=== PATIENT | male | born 1950 | race African-American/Black ===

== ENCOUNTER → 2018-10-08 | Outpatient (CLI) | payer MEDICARE, OTHER ==
[2015-08-11 12:30] VITALS: BP 108/56
[~2018-10-08] MED LIST: ACET325T9 PO; AMLO5TAB10 PO; ASPI325T8 PO; BISA5TAB4 PO; CA C1TAB28 PO; CYCL5TAB PO; FENO160T PO; FERR325T14 PO; FLUT16SP2 NS; HYDR-2145 PO; HYDR-2761 PO; INSU100V8 SQ; LISI10TA2 PO; LORA10TA3 PO; LOXA10CA PO; MOME45CR2 TP; OMEP40CA5 PO; PIOG45TA62 PO; POLY2500 PO; POTA20PI2 IV; SENN-161 PO; TAMS0.4C2 PO; TRAM50TA PO; TRAV5DRO OP; ZOLP5TAB5 PO
[2018-10-08 11:50] LABS: BASO # 0.1 x10^3/uL (0.0-0.2); BASO % 1 % (0-3); EOS # 0.1 x10^3/uL (0.0-0.7); EOS % 2 % (0-3); HEMATOCRIT 48.6 % (39.0-53.0); HEMOGLOBIN 15.6 g/dL (13.0-17.5); LYMPH # 1.4 x10^3/uL (1.0-4.8); LYMPH % 20 % (24-48); MEAN CORPUSCULAR HEMOGLOBIN 26 pg (25-35); MEAN CORPUSCULAR HGB CONC 32 g/dL (31-37); MEAN CORPUSCULAR VOLUME 82 fL (79-100); MONO # 0.6 x10^3/uL (0.0-1.1); MONO % 9 % (0-9); NEUT # 4.8 x10^3uL (1.8-7.7); NEUT % 69 % (31-73); PLATELET COUNT 175 x10^3/uL (140-400); RED BLOOD COUNT 5.95 x10^6/uL (4.30-5.70); RED CELL DISTRIBUTION WIDTH 14.7 % (11.5-14.5)
--- NOTE | 2018-10-08 12:24 | RAD ---
EXAM: Left knee, 3 views. HISTORY: Pain and swelling. COMPARISON: None. FINDINGS: 3 views left knee are obtained. There is mild tricompartmental spurring. There is medial and lateral compartment chondrocalcinosis. There is no fracture, dislocation or subacute fixation. There is a trace joint effusion. IMPRESSION: 1. Mild tricompartmental arthritis of the left knee with chondrocalcinosis and suspected trace joint effusion. 2. No acute osseous finding. Electronically signed by: Vijaya Pittman MD (10/08/2018 12:21 PM) [facility]
[2018-10-08 12:42] LABS: ALBUMIN 3.9 g/dL (3.4-5.0); ALBUMIN/GLOBULIN RATIO 0.9 (1.0-1.7); CALCIUM 9.6 mg/dL (8.5-10.1); CHOLESTEROL/HDL RATIO 2.1; CREATININE 2.3 mg/dL (0.7-1.3); GFR 34.6; POTASSIUM 3.2 mmol/L (3.5-5.1); TOTAL BILIRUBIN 0.2 mg/dL (0.2-1.0); TOTAL PROTEIN 8.3 g/dL (6.4-8.2)
[2018-10-09 00:10] LABS: HEMOGLOBIN A1C 5.8 % (4.8-5.6)
== END | disposition home or self-care (01) ==
LOC: LAB 11:13
PROVIDERS: ATTEND Internal Medicine
DX: M17.12 Unilateral primary osteoarthritis, left knee (principal); M11.262 Other chondrocalcinosis, left knee; E11.29 Type 2 diabetes mellitus with other diabetic kidney complication
CPT/HCPCS: 36415; 73562; 80053; 80061; 83036; 85025

== ENCOUNTER → 2020-02-20 | Outpatient (CLI) | payer MEDICARE, MEDICAID ==
[2015-08-11 12:30] VITALS: BP 108/56
[~2020-02-20] MED LIST changes: -MOME45CR2 TP; +MOME45CR3 TP; +OMEP40CA45 PO; -OMEP40CA5 PO; +REGADENOSON 0.4 MG/5 ML DISP.SYRIN. IV ONE
--- NOTE | 2020-02-20 15:51 | CARD ---
MR#: [id number] Date of Study: 02/20/2020 Ordering Physician: HUONG VALIENTE, Referring Physician: HUONG VALIENTE, Tech: Belem Hernandez APPROVED REPORT EXAM: Two-dimensional and M-mode echocardiogram with Doppler and color Doppler. Other Information Quality : GoodHR: 72bpm Technically limited study due to body habitus. INDICATION Abnormal EKG RISK FACTORS Hypertension Diabetes Smoking 2D DIMENSIONS RVDd2.5 (2.9-3.5cm)Left Atrium(2D)3.6 (1.6-4.0cm) IVSd1.1 (0.7-1.1cm)Aortic Root(2D)3.1 (2.0-3.7cm) LVDd5.5 (3.9-5.9cm)LVOT Diameter1.9 (1.8-2.4cm) PWd1.1 (0.7-1.1cm)LVDs4.9 (2.5-4.0cm) FS (%) 9.8 %SV31.2 ml LVEF(%)21.3 (>50%) Aortic Valve AoV Peak Willian.161.5cm/sAoV VTI33.6cm AO Peak GR.10.4mmHgLVOT Peak Willian.128.0cm/s AO Mean GR.6mmHgAVA (VMAX)2.21cm2 Mitral Valve MV E Jfqfocce50.3cm/sMV E Peak Gr.5mmHg MV DECEL [id number] A Dcxwovcb649.5cm/s MV E Mean Gr.2mmHgE/A Ratio0.6 Pulmonary Valve PV Peak Dxuajovz40.6cm/s Tricuspid Valve TR P. Salrests757iu/sRAP CXWQNLRW7dyUd TR Peak Gr.43gqJjZALX78ccHp Pulmonary Vein S1 Lfjdymle54.0cm/sD2 Ludhfemm50.7cm/s PVa cmarynsl135grcl LEFT VENTRICLE The left ventricle is normal size. There is mild concentric left ventricular hypertrophy. The systoli c function is moderately impaired. The Ejection Fraction is 35%. There is global hypokinesis of the l eft ventricle. Transmitral Doppler flow pattern is Grade I-abnormal relaxation pattern. RIGHT VENTRICLE The right ventricle is normal size. There is normal right ventricular wall thickness. The right ventr icular systolic function is normal. ATRIA The left atrium size is normal. The right atrium size is normal. The interatrial septum is intact wit h no evidence for an atrial septal defect or patent foramen ovale as noted on 2-D or Doppler imaging. AORTIC VALVE The aortic valve is not well visualized. Doppler and Color Flow revealed trace aortic regurgitation. Calculated aortic valve area is 2.2 cm2 with maximum pressure gradient of 11 mmHg and mean pressure g radient of 7 mmHg. MITRAL VALVE The mitral valve is normal in structure and function. There is no evidence of mitral valve prolapse. There is no mitral valve stenosis with a mean gradient of 2.17 mmHg. Doppler and Color-flow revealed trace mitral regurgitation. TRICUSPID VALVE The tricuspid valve is normal in structure and function. Doppler and Color Flow revealed trace tricus pid regurgitation with an estimated PAP of 29 mmHg. There is no tricuspid valve stenosis. PULMONIC VALVE The pulmonic valve is not well visualized. Doppler and Color Flow revealed no pulmonic valvular regur gitation. There is no pulmonic valvular stenosis. GREAT VESSELS The aortic root is normal in size. The IVC is normal in size and collapses >50% with inspiration. PERICARDIAL EFFUSION There is no evidence of significant pericardial effusion. Critical Notification Critical Value: No <Conclusion> The systolic function is moderately impaired. The Ejection Fraction is 35%. There is global hypokinesis of the left ventricle. Signed by : Yaakov Charles, Electronically Approved : 02/20/2020 15:50:58
--- NOTE | 2020-02-20 16:02 | RAD ---
MR#: [id number] Date of Study: 02/20/2020 Ordering Physician: HUONG VALIENTE, Referring Physician: LUÍS SANTILLAN Tech: CARMELA Stockton APPROVED REPORT Test Type: Pharmacological Stress Nurse/Tech: Aylin Oden R.N. Test Indications: abn. EKG Cardiac History: Hypertension, Diabetes Medications: See Electronic Medical Record Medical History: See Electronic Medical Record Resting ECG: NSR with PAC,s and PVC,s Resting Heart Rate: 71 bpm Resting Blood Pressure: 137/77mmHg Pretest Chest Pain: No chest pain Nurse/Tech Notes S1S2, lungs sound clear Consent: The procedure was explained to the patient in lay terms. Informed consent was witnessed. Maco eout was entered into [employer]. History and Stress Test performed by Aylin Oden R.N. Pharm. Details Pharmacologic stress testing was performed using 0.4mg per 5ml of regadenoson given intravenously ove r 7-10 seconds. Stress Symptoms No chest pain or symptoms. POST EXERCISE Reason for Termination: Infusion complete Target HR: 130 Max HR: 109 bpm Max Blood Pressure: 137/77mmHg Blood Pressure response to exercise: Normal blood pressure response during stress. Chest Pain: No. Arrhythmia: No. no change from pre test ST Change: No. INTERPRETATION Stress EKG Conclusion: No evidence of stress induced EKG changes Imaging Protocol IMAGE PROTOCOL: Rest Tc-99m/stress Tc-99m 1 day Rest: Stress: Viability: Radiopharm.Tc99m StngmrcquDv97f Sestamibi Boxd02pRh 33mCi Duration 15min. 13min. Img Date 02/20/2020 02/20/2020 Inj-Img Fkwt33adl. 60min. Rest Admin Site:IV - Right HandAdministrator:RT Alea (R)(N) Stress Admin Site: IV - Right HandAdministrator: RT Alea (R)(N) STRESS DATA End Diast. Vol.135.0mlLVEDV index BSA70.0ml End Syst. Vol.68.0mlLVESV index BSA35.0ml Myocardial Jpcf316.0gEject. Eqwokrzk66.0% Stress Scores Regional WT1.00Summed WT20.00 Regional WM0.00Summed WM19.00 LV Perfusion There is a fixed basal to mid perfusion defect suggestive of prior infarct without active ischemia. Wall Motion Mild LV dysfunction. EF 50% LV Perf. Quant 17 Seg. SSS2.00 17 Seg. SRS7.00 17 Seg. SDS1.00 Stress Defect Extent (% LAD)0.00Rest Defect Extent (% LAD)2.50Rev. Defect Extent (% LAD)0.00 Stress Defect Extent (% LCX) 0.00Rest Defect Extent (% LCX)11.30Rev. Defect Extent (% LCX)0.00 Stress Defect Extent (% RCA)6.70Rest Defect Extent (% RCA)13.30Rev. Defect Extent (% RCA)0.00 Stress Defect Extent (% RANJAAN)1.30Rest Defect Extent (% RANJANA)6.30Rev. Defect Extent (% RANJANA)0.00 Other Information Quality:Average Risk Assessment: Moderate Risk Conclusion 1. No evidence of stress induced EKG changes. 2. Fixed basal to mid inferior wall perfusion defect suggestive of prior infarct. 3. Mild global hypokinesis EF = 50% 4. Moderate risk study Signed by : Yaakov Charles, Electronically Approved : 02/20/2020 16:02:05
== END | disposition home or self-care (01) ==
LOC: NM 12:24
PROVIDERS: ATTEND Internal Medicine Cardiovascular Disease
DX: I51.7 Cardiomegaly (principal); R94.31 Abnormal electrocardiogram [ECG] [EKG]; I10 Essential (primary) hypertension; E11.9 Type 2 diabetes mellitus without complications
CPT/HCPCS: 78452; 93017; 93306; A9500; J2785

== ENCOUNTER → 2021-03-01 | Outpatient (CLI) | payer MEDICARE, MEDICAID ==
[2015-08-11 12:30] VITALS: BP 108/56
[~2021-03-01] MED LIST changes: +AMLO-186 PO; -AMLO5TAB10 PO; +LISI10TA16 PO; -LISI10TA2 PO; -OMEP40CA45 PO; +OMEP40CA7 PO; -REGADENOSON 0.4 MG/5 ML DISP.SYRIN. IV ONE
--- NOTE | 2021-03-01 15:57 | RAD ---
CT of the chest without contrast 03/01/2021 Indication: [Hemoptysis. Cough comparison study: Chest radiograph August 11, 2015 Technique: Multidetector CT imaging of the chest was performed without contrast Findings: Heart is mildly enlarged. No pericardial effusion is identified. Limited noncontrast enhanc ed evaluation the mediastinum demonstrates no overt pathologically enlarged adenopathy. Multifocal ca lcified mediastinal lymphadenopathy is seen which most commonly reflects prior granulomatous disease. The ascending thoracic aorta is ectatic measuring 3.9 cm. There is no pneumothorax, pleural effusion, or acute appearing infiltrate. Scattered calcified pulmon darryl granulomata are noted. Limited visualization of the upper abdomen demonstrates no acute abnormali ty. No acute osseous changes are appreciated. IMPRESSION: 1. No evidence of acute cardiopulmonary process is identified 2. Mild cardiomegaly CT DOSING PQRS STATEMENT: One or more of the following individualized dose reduction techniques were utilized for this examinat ion: 1. Automated exposure control 2. Adjustment of the mA and/or kV according to patient size 3. Use of iterative reconstruction technique Electronically signed by: Dylan Reeves MD (03/01/2021 3:55 PM) [id number]
== END ==
LOC: CT 11:23
PROVIDERS: ATTEND Internal Medicine
DX: I51.7 Cardiomegaly (principal); R04.2 Hemoptysis; R59.0 Localized enlarged lymph nodes; I77.810 Thoracic aortic ectasia
CPT/HCPCS: 71250

== ENCOUNTER 2021-12-09 16:47 | Emergency (ER) | payer MEDICARE, MEDICAID ==
[~2021-12-09] VITALS: Ht 172.7 cm; Wt 90.0 kg
[2021-12-09 17:45] LABS: BASO # 0.1 x10^3/uL (0.0-0.2); BASO % 1 % (0-3); EOS # 0.1 x10^3/uL (0.0-0.7); EOS % 2 % (0-3); HEMATOCRIT 38.2 % (39.0-53.0); HEMOGLOBIN 12.6 g/dL (13.0-17.5); LYMPH # 1.2 x10^3/uL (1.0-4.8); LYMPH % 18 % (24-48); MEAN CORPUSCULAR HEMOGLOBIN 27 pg (25-35); MEAN CORPUSCULAR HGB CONC 33 g/dL (31-37); MEAN CORPUSCULAR VOLUME 81 fL (79-100); MONO # 0.7 x10^3/uL (0.0-1.1); MONO % 11 % (0-9); NEUT # 4.3 x10^3/uL (1.8-7.7); NEUT % 67 % (31-73); PLATELET COUNT 215 x10^3/uL (140-400); RED BLOOD COUNT 4.73 x10^6/uL (4.30-5.70); RED CELL DISTRIBUTION WIDTH 14.5 % (11.5-14.5); WHITE BLOOD COUNT 6.3 x10^3/uL (4.0-11.0)
[2021-12-09] MEDS ORDERED: IV RINGERS,LACTATED 1000ML 1,000 ML IV ONE (17:45)
[2021-12-09 17:55] LABS: CALCIUM 9.5 mg/dL (8.5-10.1); CREATININE 2.5 mg/dL (0.7-1.3); GFR 31.1; POTASSIUM 3.6 mmol/L (3.5-5.1)
[2021-12-09 18:01] LABS: ALBUMIN 3.3 g/dL (3.4-5.0); ALBUMIN/GLOBULIN RATIO 0.9 (1.0-1.7); MAGNESIUM 1.7 mg/dL (1.8-2.4); TOTAL BILIRUBIN 0.4 mg/dL (0.2-1.0); TOTAL PROTEIN 6.9 g/dL (6.4-8.2)
--- NOTE | 2021-12-09 18:28 | RAD ---
CT HEAD/BRAIN WO History: Reason: AMS / Spl. Instructions: / History: Comparison: August 11, 2015 Technique: Noncontrast CT imaging was performed of the head. Exposure: One or more of the following individualized dose reduction techniques were utilized for thi s examination: 1. Automated exposure control 2. Adjustment of the mA and/or kV according to patient size 3. Use of iterative reconstruction technique. Findings: No intracranial hemorrhage. No mass effect. No hydrocephalus. Mild brain parenchymal volume loss. Mild foci of decreased attenuation within hemispheric white matte r, most often due to chronic microvascular ischemia. Intracranial atheromatous calcifications. Partially empty sella, often incidental. Hemorrhage in the posterior aspect of the right globe with slight V shaped morphology. Imaged paranas al sinuses and mastoid air cells are clear. No acute calvarial fracture. Impression: 1. Right posterior globe hemorrhage, may represent retinal detachment. Electronically signed by: Ant Downing DO (12/09/2021 6:26 PM) [facility] [place]
--- NOTE | 2021-12-09 18:30 | RAD ---
XR CHEST 1V History: Reason: AMS / Spl. Instructions: / History: Comparison: August 11, 2015 Findings: No consolidation or pleural effusion. Normal heart size. No pneumothorax. Calcified pulmonary nodules , likely prior granulomatous disease. Impression: 1. No acute cardiopulmonary process. Electronically signed by: Ant Downing DO (12/09/2021 6:28 PM) [facility] [place]
--- NOTE | 2021-12-09 19:53 | PHYS DOC ---
Past Medical History Past Medical History: Diabetes-Type II, High Cholesterol, Hypertension, Renal Disease Additional Past Medical Histor: ID, right retinal detachment Additional Past Surgical Histo: R retinal detachment procedure Smoking Status: Never Smoker Alcohol Use: None Drug Use: None General Adult EDM: Chief Complaint: OTHER COMPLAINTS HPI: HPI: Patient is a 71 year old male with past medical history that includes intellectual disability who presents via EMS from a snf with complaint of altered mental status. Per EMS, snf health nurse reported patient was "not himself today." Home health nurse also reported some weakness to EMS. Patient states that he sustained a fall yesterday but does not have significant pain. He is unable to provide further history at this time. Review of Systems: Review of Systems: Unable to obtain secondary to patient's baseline mental status. Heart Score: C/O Chest Pain: No Current Medications: Current Medications Medications (Trade) Dose Ordered Sig/Michael Start Time Stop Time Status Last Admin Dose Admin Ringer's Solution 1,000 ml @ 1,000 mls/hr 1X ONCE 12/09/21 17:45 12/09/21 18:44 DC 12/09/21 17:45 1,000 MLS/HR Allergies: Allergies: Allergies Coded Allergies Type Severity Reaction Last Updated Verified No Known Drug Allergies 04/13/14 No Physical Exam: PE: Constitutional: Well developed, well nourished, no acute distress, non-toxic appearance. HENT: Normocephalic, atraumatic, bilateral external ears normal, oropharynx moist, no oral exudates, nose normal. Eyes: PERRL on left, nonreactive pupil on right, EOMI, conjunctiva normal, no discharge. Neck: Normal range of motion, no step-off, no midline/bony tenderness. Cardiovascular: Heart regular rate and rhythm. No apparent murmurs, rubs or gallops. Lungs & Thorax: Equal thoracic expansion, no increased work of breathing. Abdomen: Soft, no tenderness, no masses, no pulsatile masses. Skin: Warm, dry, no erythema. Back: No no step-off, no midline/bony tenderness. Extremities: No tenderness, no cyanosis, no clubbing, ROM intact, no edema. Neurologic: Normal motor function, normal sensory function, no focal deficits noted. Current Patient Data: Labs: Laboratory Tests Test 12/09/21 17:00 12/09/21 17:50 White Blood Count 6.3 x10^3/uL (4.0-11.0) Red Blood Count 4.73 x10^6/uL (4.30-5.70) Hemoglobin 12.6 g/dL (13.0-17.5) L Hematocrit 38.2 % (39.0-53.0) L Mean Corpuscular Volume 81 fL (79-100) Mean Corpuscular Hemoglobin 27 pg (25-35) Mean Corpuscular Hemoglobin Concent 33 g/dL (31-37) Red Cell Distribution Width 14.5 % (11.5-14.5) Platelet Count 215 x10^3/uL (140-400) Neutrophils (%) (Auto) 67 % (31-73) Lymphocytes (%) (Auto) 18 % (24-48) L Monocytes (%) (Auto) 11 % (0-9) H Eosinophils (%) (Auto) 2 % (0-3) Basophils (%) (Auto) 1 % (0-3) Neutrophils # (Auto) 4.3 x10^3/uL (1.8-7.7) Lymphocytes # (Auto) 1.2 x10^3/uL (1.0-4.8) Monocytes # (Auto) 0.7 x10^3/uL (0.0-1.1) Eosinophils # (Auto) 0.1 x10^3/uL (0.0-0.7) Basophils # (Auto) 0.1 x10^3/uL (0.0-0.2) Sodium Level 137 mmol/L (136-145) Potassium Level 3.6 mmol/L (3.5-5.1) Chloride Level 97 mmol/L (98-107) L Carbon Dioxide Level 27 mmol/L (21-32) Anion Gap 13 (6-14) Blood Urea Nitrogen 32 mg/dL (8-26) H Creatinine 2.5 mg/dL (0.7-1.3) H Estimated GFR (Cockcroft-Gault) 31.1 BUN/Creatinine Ratio 13 (6-20) Glucose Level 102 mg/dL (70-99) H Calcium Level 9.5 mg/dL (8.5-10.1) Magnesium Level 1.7 mg/dL (1.8-2.4) L Total Bilirubin 0.4 mg/dL (0.2-1.0) Aspartate Amino Transferase (AST) 20 U/L (15-37) Alanine Aminotransferase (ALT) 18 U/L (16-63) Alkaline Phosphatase 43 U/L (46-116) L Troponin I High Sensitivity 14 ng/L (4-75) Total Protein 6.9 g/dL (6.4-8.2) Albumin 3.3 g/dL (3.4-5.0) L Albumin/Globulin Ratio 0.9 (1.0-1.7) L Ammonia 10 mcmol/L (11-34) L Laboratory Tests 12/09/21 17:00 Laboratory Tests 12/09/21 17:00 Vital Signs: Vital Signs Date Time Temp Pulse Resp B/P (MAP) Pulse Ox O2 Delivery O2 Flow Rate FiO2 12/09/21 21:30 78 18 136/68 (90) 100 12/09/21 20:39 84 20 146/74 (98) 98 Room Air 12/09/21 17:00 99.4 74 18 112/70 (84) 98 Room Air 99.4 EKG: EKG: EKG Interpreted by Dr. New, taken at 1655: Regular rate and rhythm 73 bpm with no ectopic beats. QT 388 ms/QTc 431 ms. No STEMI. Radiology/Procedures: Radiology/Procedures: PROCEDURE: CT HEAD WO CONTRAST CT HEAD/BRAIN WO History: Reason: AMS / Spl. Instructions: / History: Comparison: August 11, 2015 Technique: Noncontrast CT imaging was performed of the head. Exposure: One or more of the following individualized dose reduction techniques were utilized for this examination: 1. Automated exposure control 2. Adjustment of the mA and/or kV according to patient size 3. Use of iterative reconstruction technique. Findings: No intracranial hemorrhage. No mass effect. No hydrocephalus. Mild brain parenchymal volume loss. Mild foci of decreased attenuation within hemispheric white matter, most often due to chronic microvascular ischemia. Intracranial atheromatous calcifications. Partially empty sella, often incidental. Hemorrhage in the posterior aspect of the right globe with slight V shaped morphology. Imaged paranasal sinuses and mastoid air cells are clear. No acute calvarial fracture. Impression: 1. Right posterior globe hemorrhage, may represent retinal detachment. Electronically signed by: Ant Downing DO (12/09/2021 6:26 PM) [facility] PROCEDURE: PORTABLE CHEST 1V XR CHEST 1V History: Reason: AMS / Spl. Instructions: / History: Comparison: August 11, 2015 Findings: No consolidation or pleural effusion. Normal heart size. No pneumothorax. Calcified pulmonary nodules , likely prior granulomatous disease. Impression: 1. No acute cardiopulmonary process. Electronically signed by: Ant Downing DO (12/09/2021 6:28 PM) [facility] Course & Med Decision Making: Course & Med Decision Making Pertinent Labs and Imaging studies reviewed. (See chart for details) Patient is a 71-year-old male with past medical history that includes in tellectual disability who presents with generally not feeling well, per home health nurse as reported by EMS. Patient work-up today does not reveal any acute pathology. Initially, I was concerned about the possible retinal detachment seen on CT imaging. Patient states he had "an operation on it a few years ago." Patient's family member was contacted, who verified that the patient has had retinal detachment in the past and follows closely with ophthalmology. Patient also sees his primary care doctor every 3 months for his other chronic health problems. Patient's family mother states the snf called him and let him know that the patient would be being evaluated in the ER, and family requested that the patient will come to [place]. Patient was transferred back to his snf via EMS in good condition. Gretchen Disclaimer: Gretchen Disclaimer: This electronic medical record was generated, in whole or in part, using a voice recognition dictation system. Departure Departure Impression: Primary Impression: Episode of generalized weakness Additional Impressions: Hx of kidney disease Hx of detached retina repair History of retinal detachment Disposition: 01 HOME / SELF CARE / HOMELESS Condition: STABLE Referrals: TIM LUGO MD (PCP) Patient Instructions: Weakness, Ggxv-ba-Rwmp Additional Instructions: EMERGENCY DEPARTMENT GENERAL DISCHARGE INSTRUCTIONS Thank you for coming to [facility] Emergency Department (ED) today and trusting us with you care. We trust that you had a positive experience in our Emergency Department. If you wish to speak to the department management, you may call the director at . YOUR FOLLOW UP INSTRUCTIONS ARE FOLLOWS: 1. Follow up with your primary care doctor. If you do not have a primary doctor, please ask for a resource list of physicians or clinics that may be able to assist you with follow up care. 2. The emergency provider has interpreted your imaging studies, if any were ordered. The radiology security incident response specialist also reviewed them. If there is a change in the findings, you will be notified in 48 hours when at all possible. 3. If a lab test or culture has been done, your results will be reviewed and you will be notified if you need a change in treatment. 4. Follow instructions verbalized to you and refer to the printouts if needed. ADDITIONAL INSTRUCTIONS AND INFORMATION: 1. Your care today has been supervised by a physician who is specially trained in emergency care. Many problems require more than one evaluation for a comple te diagnosis and treatment. We recommend that you schedule your follow up appointment as recommended to ensure complete treatment of you illness or injury. If you are unable to obtain follow up care and continue to have a problem, or if your condition worsens, we recommend that you return to the ED. 2. We are not able to safely determine your condition over the phone nor are we able to give sound medical advice over the phone. For these safety reasons, if you call for medical advice we will ask you to come to the ED for further evaluation. 3. If you have any questions regarding these discharge instructions please call the ED at . SAFETY INFORMATION: In the interest of safety, wellness, and injury prevention; we encourage you to wear your seat belt, if you smoke; quite smoking, and we encourage family to use a protective helmet for bicycling and other sporting events that present an increased risk for head injury. IF YOUR SYMPTOMS WORSEN OR NEW SYMPTOMS DEVELOP, OR YOU HAVE CONCERNS ABOUT YOUR CONDITION; OR IF YOUR CONDITION WORSENS WHILE YOU ARE WAITING FOR YOUR FOLLOW UP APPOINTMENT; EITHER CONTACT YOUR PRIMARY CARE DOCTOR, THE PHYSICIAN WHOSE NAME AND NUMBER YOU WERE GIVEN, OR RETURN TO THE ED IMMEDIATELY. EL MOORE December 09, 2021 19:53
[2021-12-09 21:03] LABS: BACTERIA,URINE 0 /HPF (0-FEW); RBC,URINE RARE /HPF (0-2); WBC,URINE 0 /HPF (0-4)
[2021-12-09 21:04] LABS: AMPHETAMINE/METHAMPHETAMINE NEG (NEG); BARBITURATES NEG (NEG); BENZODIAZEPINES NEG (NEG); CANNABINOIDS NEG (NEG); COCAINE NEG (NEG); METHADONE NEG (NEG); OPIATES NEG (NEG); PHENCYCLIDINE NEG (NEG)
[2021-12-09 21:30] VITALS: BP 136/68
--- NOTE | 2021-12-10 09:12 | EKG ---
[facility] [address] [place] [address] Test Date: 2021-12-09 Test Time: 16:55:24 Pat Name: EDNA NUNN Department: Room: Gender: M [employer]illing [employer] Specialist: : [id number] Requested By: EL MOORE Order Number: [id number] Reading MD: Yaakov Charles MD Measurements Intervals [place] Rate: 73 P: 47 MS: 160 QRS: 25 QRSD: 88 T: 64 QT: 388 QTc: 431 Interpretive Statements SINUS RHYTHM PVC Electronically Signed On 12-10-2021 10:55:48 CDT by Yaakov Charles MD
== END 2021-12-09 22:28 | disposition home or self-care (01) ==
LOC: ER 16:47
DX: R53.1 Weakness (principal); R41.82 Altered mental status, unspecified; E78.00 Pure hypercholesterolemia, unspecified; I12.9 Hypertensive chronic kidney disease with stage 1 through stage 4 chronic kidney disease, or unspecified chronic kidney disease; E11.22 Type 2 diabetes mellitus with diabetic chronic kidney disease; N18.9 Chronic kidney disease, unspecified
CPT/HCPCS: 36415; 70450; 71045; 80053; 80307; 81001; 82140; 83735; 84484; 85025; 93005; 96360; 99285; J7120; P9612